=== PATIENT | female | born 1995 | race Caucasian/White ===

== ENCOUNTER 2017-01-30 06:12 | Emergency (ER) | payer BC ==
[~2017-01-30 06:12] MED LIST: ACID REDUCER20 MG PO; ALBUTEROL17 GM INH; AMOXICILLIN875 MG PO; BACTRIM DS TABL1 TA2 PO; DELTASONE20 MG PO; HYDROCODON-ACE1 EAC7 PO; HYDROMET SYRUP480 ML PO; IBUPROFEN600 MG PO; MACROBID100 M1 PO; NEO/POLYMYXIN/H10 M1 AU; NO MEDICATIONS; PHENAZOPYRIDIN100 M1 PO; PRILOSEC20 MG PO; PYRIDIUM PO; PYRIDIUM100 MG PO; VIBRAMYCIN100 M1 PO; ZITHROMAX PO; ZOFRAN ODT4 MG DOB; ZOFRAN ODT4 MG PO
[2017-08-21] MEDS ORDERED: NO MEDICATIONS (02:18)
== END 2017-01-30 07:58 | disposition home or self-care (01) ==
LOC: SED 06:12
DX: G43.909 Migraine, unspecified, not intractable, without status migrainosus (principal); M41.9 Scoliosis, unspecified; K21.9 Gastro-esophageal reflux disease without esophagitis; N39.0 Urinary tract infection, site not specified
CPT/HCPCS: 96361; 96374; 96375; 99284; J0780; J1200; J1885